=== PATIENT | female | born 1960 | race African-American/Black ===

== ENCOUNTER 2023-09-11 10:57 | Emergency (ER) | payer MEDICAID, OTHER ==
[~2023-09-11] VITALS: Ht 165.1 cm; Wt 65.3 kg
[2023-09-11] MEDS ORDERED: KETOROLAC TROMETHAMINE 15 MG/ML VIAL IM ONE (12:30)
[2023-09-11] MEDS ORDERED: ACETAMINOPHEN 325 MG TABLET PO ONE (12:30)
[2023-09-11] MEDS ORDERED: ACETAMINOPHEN 325 MG TABLET ONE (12:31)
[2023-09-11] MEDS ORDERED: KETOROLAC TROMETHAMINE 15 MG/ML VIAL ONE (12:31)
[2023-09-11] MEDS ORDERED: IBUP-1955 PO (14:56)
[2023-09-11 16:13] VITALS: BP 116/65; TEMP 98.3; O2SAT 100
== END 2023-09-11 15:40 | disposition home or self-care (01) ==
LOC: ER 10:57
DX: S93.402A Sprain of unspecified ligament of left ankle, initial encounter (principal); S93.602A Unspecified sprain of left foot, initial encounter; S63.91XA Sprain of unspecified part of right wrist and hand, initial encounter; W01.0XXA Fall on same level from slipping, tripping and stumbling without subsequent striking against object, initial encounter; Y93.89 Activity, other specified; Y92.89 Other specified places as the place of occurrence of the external cause; Y99.8 Other external cause status
CPT/HCPCS: 29125; 29515; 73110; 73130; 73610; 73630; 96372; 99284; J1885

== ENCOUNTER 2023-12-27 10:52 | Inpatient (IN) | payer OTHER ==
[~2023-12-27] VITALS: Ht 165.1 cm; Wt 73.5 kg
[~2023-12-27 10:52] MED LIST: IBUP-1955 PO; PRED20TA PO
[2023-12-27] MEDS ORDERED: ONDANSETRON HCL/PF 4 MG/2 ML VIAL ONE (11:37)
[2023-12-27] MEDS ORDERED: MORPHINE SULFATE INJ 4 MG/ML DISP.SYRIN ONE (11:38)
[2023-12-27] MEDS: ONDANSETRON HCL/PF 4 MG/2 ML VIAL IVP ONE (12:08)
[2023-12-27] MEDS: MORPHINE SULFATE INJ 2 MG/ML DISP.SYRIN IV ONE (12:10)
[2023-12-27 12:18] LABS: WHITE BLOOD COUNT (AUTO) 19.9 K/uL (4.3-11.0)
[2023-12-27 12:20] LABS: BASOPHILS # (AUTO) 0.2 K/uL (0.0-0.2); BASOPHILS % (AUTO) 1.1 % (0.0-2.0); EOSINOPHILS % (AUTO) 0.1 % (0.0-6.0); HEMATOCRIT 40 % (33-45); LYMPHOCYTES # (AUTO) 3.4 K/uL (0.8-4.8); MEAN CORPUSCULAR HEMOGLOBIN 31 PG (26.0-33.0); MEAN CORPUSCULAR HGB CONC 33 g/dl (31.0-36.0); MEAN CORPUSCULAR VOLUME 93 fL (82-100); MONOCYTES # (AUTO) 0.9 K/uL (0.1-1.30); MONOCYTES % (AUTO) 4.5 % (2.0-12.0); NEUTROPHILS # (AUTO) 15.4 K/uL (1.8-8.9); NEUTROPHILS % (AUTO) 77.3 % (43.0-81.0); PLATELET COUNT (AUTO) 450 K/uL (150-450); RED BLOOD CELL COUNT(AUTO) 4.26 MIL/uL (4.0-5.2); RED CELL DISTRIBUTION WIDTH 13.7 % (11.5-15.0)
[2023-12-27 12:20] LABS: APPEARANCE,URINE CLEAR (CLEAR); BILIRUBIN,URINE NEGATIVE (NEGATIVE); BLOOD, URINE NEGATIVE Ery/uL (NEGATIVE); COLOR,URINE YELLOW (YELLOW); KETONES,URINE NEGATIVE (NEGATIVE); LEUKOCYTE ESTERASE ,URINE NEGATIVE (NEGATIVE); NITRITE, URINE NEGATIVE (NEGATIVE); PH,URINE 6.5 (5.0-8.0); PROTEIN,URINE NEGATIVE (NEGATIVE); UGLUCOSE NEGATIVE (NEGATIVE); UROBILINOGEN,URINE 0.2 EU/dL (0.2)
[2023-12-27 12:24] LABS: ALBUMIN 3.6 g/dL (3.4-5.0); BILIRUBIN,DIRECT 0.1 mg/dL (0.0-0.2); BILIRUBIN,TOTAL 0.4 mg/dL (0.2-1.0); CALCIUM, SERUM 9.1 mg/dL (8.5-10.1); CREATININE 0.7 mg/dL (0.6-1.3); POTASSIUM 4.1 mmol/L (3.5-5.1); TOTAL PROTEIN, SERUM 7.8 g/dL (6.4-8.2)
[2023-12-27] MEDS ORDERED: IV NS 0.9% 250 ML IV ONE (12:43)
[2023-12-27] MEDS ORDERED: IOHEXOL-300 100 ML VIAL IV ONE (12:43)
[2023-12-27] MEDS: IV NS 0.9% 1,000 ML BAG IV ONE (13:10)
[2023-12-27] MEDS: PIPERACILLIN /TAZOBACTAM 3.375 G in IV D5W 50 ML IV ONE (13:40)
[2023-12-27] MEDS ORDERED: PIPERACI/TAZO 3.375GM/D5W 50ML PB IV ONE (13:43)
[2023-12-27] MEDS: HYDROMORPHONE INJ 2 MG/ML DISP.SYRIN IV ONE (15:55)
[2023-12-27 16:00] VITALS: BP 118/79; TEMP 97.5; O2SAT 98
[2023-12-27] MEDS ORDERED: ALBU6.7H9 IH (16:43)
[2023-12-27] MEDS ORDERED: MECL-159 PO (16:43)
[2023-12-27] MEDS ORDERED: FLUT16SP16 BNOSTRILS (16:43)
[2023-12-27] MEDS ORDERED: GABA-532 PO (16:43)
[2023-12-27] MEDS ORDERED: UMEC1BLS IH (16:43)
[2023-12-27] MEDS ORDERED: MULT-754 PO (16:43)
[2023-12-27] MEDS ORDERED: METO50TA16 PO (16:43)
[2023-12-27] MEDS ORDERED: DULO30CA52 PO (16:43)
[2023-12-27] MEDS ORDERED: ATOR20TA PO (16:43)
[2023-12-27] MEDS ORDERED: CHOL100045 PO (16:43)
[2023-12-27] MEDS ORDERED: ZOLPIDEM TARTRATE 5 MG TABLET PO PRN (20:30)
[2023-12-27] MEDS ORDERED: ACETAMINOPHEN 325 MG TABLET PO PRN (20:30)
[2023-12-27 21:00] VITALS: BP 118/79; TEMP 97.5; O2SAT 98
[2023-12-27] MEDS: HYDROCODONE/APAP 5/325MG TABLET PO PRN (22:31)
[2023-12-28 05:00] VITALS: BP 118/79; TEMP 97.5; O2SAT 98
[2023-12-28 07:14] LABS: BASOPHILS # (AUTO) 0.1 K/uL (0.0-0.2); BASOPHILS % (AUTO) 0.5 % (0.0-2.0); EOSINOPHILS # (AUTO) 0.2 K/uL (0.0-0.7); EOSINOPHILS % (AUTO) 1.6 % (0.0-6.0); HEMATOCRIT 35 % (33-45); HEMOGLOBIN 11.5 g/dL (11.5-14.8); LYMPHOCYTES # (AUTO) 4.2 K/uL (0.8-4.8); LYMPHOCYTES % (AUTO) 34.3 % (20.0-44.0); MEAN CORPUSCULAR HEMOGLOBIN 31 PG (26.0-33.0); MEAN CORPUSCULAR HGB CONC 33 g/dl (31.0-36.0); MEAN CORPUSCULAR VOLUME 95 fL (82-100); MONOCYTES # (AUTO) 0.9 K/uL (0.1-1.30); MONOCYTES % (AUTO) 7.4 % (2.0-12.0); NEUTROPHILS # (AUTO) 6.9 K/uL (1.8-8.9); NEUTROPHILS % (AUTO) 56.2 % (43.0-81.0); PLATELET COUNT (AUTO) 355 K/uL (150-450); RED BLOOD CELL COUNT(AUTO) 3.72 MIL/uL (4.0-5.2); RED CELL DISTRIBUTION WIDTH 13.4 % (11.5-15.0); WHITE BLOOD COUNT (AUTO) 12.3 K/uL (4.3-11.0)
[2023-12-28 07:30] LABS: ALBUMIN 2.9 g/dL (3.4-5.0); BILIRUBIN,TOTAL 0.3 mg/dL (0.2-1.0); CALCIUM, SERUM 8.5 mg/dL (8.5-10.1); CREATININE 0.7 mg/dL (0.6-1.3); POTASSIUM 3.9 mmol/L (3.5-5.1); TOTAL PROTEIN, SERUM 6.2 g/dL (6.4-8.2)
[2023-12-28] MEDS: CHOLECALCIFEROL 1,000 UNIT TABLET (VIT D3) PO SCH (08:59)
[2023-12-28] MEDS: MULTIVITAMINS,THERAGRAN 1 UDTAB TABLET PO SCH (08:59)
[2023-12-28] MEDS: predniSONE 20 MG TABLET PO SCH (08:59)
[2023-12-28] MEDS: FLUTICASONE PROPIONATE 16 GM BOTTLE NS SCH (08:59)
[2023-12-28] MEDS: ATORVASTATIN 10 MG TABLET PO SCH (08:59)
[2023-12-28] MEDS: DULOXETINE HCL 30 MG CAPSULE.DR PO SCH (08:59)
[2023-12-28] MEDS: GABAPENTIN 100 MG CAPSULE PO SCH (08:59)
[2023-12-28] MEDS: MECLIZINE HCL 25 MG TABLET PO SCH (09:00)
[2023-12-28] MEDS: METOPROLOL TARTRATE 50 MG TABLET PO SCH (09:00)
[2023-12-28] MEDS ORDERED: ONDANSETRON HCL/PF 4 MG/2 ML VIAL IV PRN (09:00)
[2023-12-28] MEDS ORDERED: BISACODYL SUPP (10 MG) 10 MG/SUPP.RECT SUPP.RECT RC PRN (09:00)
[2023-12-28] MEDS: PANTOPRAZOLE 40 MG TABLET.DR PO SCH (09:04)
[2023-12-28] MEDS: DOCUSATE SODIUM 100 MG CAPSULE PO SCH (09:04)
[2023-12-28 13:00] VITALS: BP 117/88; TEMP 98.4; O2SAT 96
[2023-12-28] MEDS: SENNOSIDES 8.6 MG TABLET PO SCH (21:05)
[2023-12-29 00:27] VITALS: BP 91/64; TEMP 98.2; O2SAT 98
[2023-12-29 05:37] VITALS: BP 146/98; TEMP 98.2; O2SAT 98
[2023-12-29 07:13] LABS: BASOPHILS # (AUTO) 0.1 K/uL (0.0-0.2); EOSINOPHILS # (AUTO) 0.1 K/uL (0.0-0.7); EOSINOPHILS % (AUTO) 0.7 % (0.0-6.0); HEMATOCRIT 35 % (33-45); HEMOGLOBIN 11.5 g/dL (11.5-14.8); LYMPHOCYTES # (AUTO) 4.8 K/uL (0.8-4.8); LYMPHOCYTES % (AUTO) 34.3 % (20.0-44.0); MEAN CORPUSCULAR HEMOGLOBIN 31 PG (26.0-33.0); MEAN CORPUSCULAR HGB CONC 33 g/dl (31.0-36.0); MEAN CORPUSCULAR VOLUME 95 fL (82-100); MONOCYTES # (AUTO) 0.9 K/uL (0.1-1.30); MONOCYTES % (AUTO) 6.6 % (2.0-12.0); NEUTROPHILS # (AUTO) 8.1 K/uL (1.8-8.9); NEUTROPHILS % (AUTO) 57.4 % (43.0-81.0); PLATELET COUNT (AUTO) 358 K/uL (150-450); RED BLOOD CELL COUNT(AUTO) 3.68 MIL/uL (4.0-5.2); RED CELL DISTRIBUTION WIDTH 13.6 % (11.5-15.0); WHITE BLOOD COUNT (AUTO) 14.1 K/uL (4.3-11.0)
[2023-12-29 07:24] LABS: INR 1.09 (0.91-1.10); PROTHROMBIN TIME 11.5 SECS (9.2-11.1)
[2023-12-29 07:57] LABS: CALCIUM, SERUM 8.7 mg/dL (8.5-10.1); CREATININE 0.7 mg/dL (0.6-1.3); POTASSIUM 3.8 mmol/L (3.5-5.1)
[2023-12-29] MEDS: Potassium Chloride 10 MEQ in IV D5/ 0.9% NACL 1,000 ML IV SCH (09:05)
[2023-12-29] MEDS: PEG 3350/NA SULF,BICARB,CL/KCL 4,000 ML BOTTLE PO ONE ×2 (10:19→18:48)
[2023-12-29] MEDS: PIPERACILLIN /TAZOBACTAM 3.375 G in IV D5W 50 ML IV SCH (12:31)
[2023-12-29 13:00] VITALS: BP 136/89; TEMP 98.2; O2SAT 98
[2023-12-29] MEDS: HYDROCODONE/APAP 10/325MG TABLET PO PRN (18:09)
[2023-12-29 19:43] VITALS: O2SAT 97
[2023-12-29] MEDS: ALBUTEROL FS 2.5 MG/3 ML VIAL.NEB NEB SCH (19:43)
[2023-12-29 19:58] VITALS: O2SAT 99
[2023-12-29 21:00] VITALS: BP 142/90; TEMP 98; O2SAT 98
[2023-12-29] MEDS: NA PHOS,M-B/NA PHOS,DI-BA 1 EA ENEMA RC ONE (21:33)
[2023-12-30] VITALS (7 sets, daily range): BP systolic 111–130; BP diastolic 57–80; TEMP 98–98.6; O2SAT 98–100
[2023-12-30] MEDS: NA PHOS,M-B/NA PHOS,DI-BA 1 EA ENEMA RC ONE (05:40)
[2023-12-30 07:02] LABS: BASOPHILS % (AUTO) 0.4 % (0.0-2.0); EOSINOPHILS # (AUTO) 0.1 K/uL (0.0-0.7); EOSINOPHILS % (AUTO) 0.8 % (0.0-6.0); HEMATOCRIT 28 % (33-45); HEMOGLOBIN 8.6 g/dL (11.5-14.8); LYMPHOCYTES # (AUTO) 3.5 K/uL (0.8-4.8); LYMPHOCYTES % (AUTO) 34.9 % (20.0-44.0); MEAN CORPUSCULAR HEMOGLOBIN 32 PG (26.0-33.0); MEAN CORPUSCULAR HGB CONC 30 g/dl (31.0-36.0); MEAN CORPUSCULAR VOLUME 105 fL (82-100); MONOCYTES # (AUTO) 0.9 K/uL (0.1-1.30); MONOCYTES % (AUTO) 8.6 % (2.0-12.0); NEUTROPHILS # (AUTO) 5.6 K/uL (1.8-8.9); NEUTROPHILS % (AUTO) 55.3 % (43.0-81.0); PLATELET COUNT (AUTO) 240 K/uL (150-450); RED BLOOD CELL COUNT(AUTO) 2.72 MIL/uL (4.0-5.2); RED CELL DISTRIBUTION WIDTH 14.9 % (11.5-15.0); WHITE BLOOD COUNT (AUTO) 10.1 K/uL (4.3-11.0)
[2023-12-30 11:20] LABS: CALCIUM, SERUM 8.3 mg/dL (8.5-10.1); CREATININE 0.8 mg/dL (0.6-1.3); POTASSIUM 3.3 mmol/L (3.5-5.1)
[2023-12-30 11:45] LABS: THYROID STIMULATING HORMONE 2.44 uIU/mL (0.358-3.74)
[2023-12-31] VITALS (7 sets, daily range): BP systolic 115–128; BP diastolic 78–80; TEMP 98–98.6; O2SAT 98–100
[2023-12-31 07:07] LABS: BASOPHILS # (AUTO) 0.1 K/uL (0.0-0.2); BASOPHILS % (AUTO) 0.7 % (0.0-2.0); EOSINOPHILS # (AUTO) 0.3 K/uL (0.0-0.7); EOSINOPHILS % (AUTO) 3.1 % (0.0-6.0); HEMATOCRIT 33 % (33-45); HEMOGLOBIN 11.1 g/dL (11.5-14.8); LYMPHOCYTES # (AUTO) 2.4 K/uL (0.8-4.8); LYMPHOCYTES % (AUTO) 27.4 % (20.0-44.0); MEAN CORPUSCULAR HEMOGLOBIN 32 PG (26.0-33.0); MEAN CORPUSCULAR HGB CONC 33 g/dl (31.0-36.0); MEAN CORPUSCULAR VOLUME 95 fL (82-100); MONOCYTES # (AUTO) 0.8 K/uL (0.1-1.30); MONOCYTES % (AUTO) 8.9 % (2.0-12.0); NEUTROPHILS # (AUTO) 5.3 K/uL (1.8-8.9); NEUTROPHILS % (AUTO) 59.9 % (43.0-81.0); PLATELET COUNT (AUTO) 308 K/uL (150-450); RED BLOOD CELL COUNT(AUTO) 3.49 MIL/uL (4.0-5.2); RED CELL DISTRIBUTION WIDTH 13.2 % (11.5-15.0); WHITE BLOOD COUNT (AUTO) 8.8 K/uL (4.3-11.0)
[2023-12-31] MEDS ORDERED: IOHEXOL-350 100 ML VIAL IV ONE (08:00)
[2023-12-31] MEDS ORDERED: IV NS 0.9% 250 ML IV ONE (08:01)
[2023-12-31 08:16] LABS: CALCIUM, SERUM 8.2 mg/dL (8.5-10.1); CREATININE 0.9 mg/dL (0.6-1.3); POTASSIUM 3.5 mmol/L (3.5-5.1)
[2023-12-31] MEDS ORDERED: METR500T PO (09:24)
[2023-12-31] MEDS ORDERED: OXYC-128 PO (09:24)
[2023-12-31] MEDS ORDERED: LEVO500T90 PO (09:24)
[2023-12-31] MEDS: IPRATROPIUM NEB FS 0.5 MG/2.5 ML AMPUL.NEB NEB SCH (14:14)
== END 2023-12-31 17:15 | disposition home or self-care (01) | DRG 392 ==
LOC: ER 10:57 → MEDSG1 15:41
PROVIDERS: ADMIT Internal Medicine; ATTEND Internal Medicine
PROC: 0DJD8ZZ Inspection of Lower Intestinal Tract, Via Natural or Artificial Opening Endoscopic (ICD-10-PCS; principal; 2023-12-30)
PROC: 0DB98ZX Excision of Duodenum, Via Natural or Artificial Opening Endoscopic, Diagnostic (ICD-10-PCS; 2023-12-30)
PROC: 0DB68ZX Excision of Stomach, Via Natural or Artificial Opening Endoscopic, Diagnostic (ICD-10-PCS; 2023-12-30)
DX: K57.32 Diverticulitis of large intestine without perforation or abscess without bleeding (principal); Q45.3 Other congenital malformations of pancreas and pancreatic duct; J44.9 Chronic obstructive pulmonary disease, unspecified; F32.9 Major depressive disorder, single episode, unspecified; E78.5 Hyperlipidemia, unspecified; D72.829 Elevated white blood cell count, unspecified; K64.8 Other hemorrhoids; I10 Essential (primary) hypertension; D64.9 Anemia, unspecified; K29.70 Gastritis, unspecified, without bleeding; Z98.1 Arthrodesis status; R42 Dizziness and giddiness; I49.9 Cardiac arrhythmia, unspecified
CPT/HCPCS: 36415; 71045-TC; 74181-TC; 76705-TC; 76856-TC; 78226; 80048-TC; 80053-TC; 80076-TC; 83540-TC; 83690-TC; 84443-TC; 85025-TC; 85610-TC; 94799-TC; A4223; A9537; G0378; J2270; J2405; J2543; J2704; J3480; J3490; J7030; J7042; J7050; J7060; J8597; Q9967

== ENCOUNTER 2024-01-08 11:17 | Emergency (ER) | payer OTHER ==
[~2024-01-08] VITALS: Ht 165.1 cm; Wt 70.3 kg
[~2024-01-08 11:17] MED LIST changes: +ALBU6.7H9 IH; +ATOR20TA PO; +CHOL100045 PO; +DULO30CA52 PO; +FLUT16SP16 BNOSTRILS; +GABA-532 PO; -IBUP-1955 PO; +LEVO500T90 PO; +MECL-159 PO; +METO50TA16 PO; +METR500T PO; +MULT-754 PO; +OXYC-128 PO; +UMEC1BLS IH
[2024-01-08] MEDS: IBUPROFEN 600 MG TABLET PO ONE (13:00)
[2024-01-08] MEDS ORDERED: IBUPROFEN 600 MG TABLET ONE (13:00)
[2024-01-08] MEDS: HYDROCODONE/APAP 5/325MG TABLET PO ONE ×2 (13:00→19:41)
[2024-01-08] MEDS ORDERED: HYDROCODONE/APAP 5/325MG TABLET ONE ×2 (13:00→19:37)
[2024-01-08] MEDS ORDERED: HYDR-4303 PO (13:10)
[2024-01-08] MEDS ORDERED: IBUP-1955 PO ×2 (13:10→14:37)
[2024-01-08] MEDS ORDERED: HYDR-3980 PO (14:37)
[2024-01-08] MEDS ORDERED: METR-147 PO (14:37)
[2024-01-08 15:00] LABS: BASOPHILS % (AUTO) 0.1 % (0.0-2.0); HEMATOCRIT 37 % (33-45); HEMOGLOBIN 11.9 g/dL (11.5-14.8); LYMPHOCYTES # (AUTO) 1.3 K/uL (0.8-4.8); LYMPHOCYTES % (AUTO) 8.4 % (20.0-44.0); MEAN CORPUSCULAR HEMOGLOBIN 30 PG (26.0-33.0); MEAN CORPUSCULAR HGB CONC 32 g/dl (31.0-36.0); MEAN CORPUSCULAR VOLUME 94 fL (82-100); MONOCYTES # (AUTO) 0.4 K/uL (0.1-1.30); MONOCYTES % (AUTO) 2.6 % (2.0-12.0); NEUTROPHILS # (AUTO) 14.2 K/uL (1.8-8.9); NEUTROPHILS % (AUTO) 88.9 % (43.0-81.0); PLATELET COUNT (AUTO) 317 K/uL (150-450); RED BLOOD CELL COUNT(AUTO) 3.96 MIL/uL (4.0-5.2); RED CELL DISTRIBUTION WIDTH 13.7 % (11.5-15.0)
[2024-01-08 15:25] LABS: INR 1.05 (0.91-1.10); PARTIAL THROMBOPLASTIN TIME 20.5 SEC (24.3-34.3); PROTHROMBIN TIME 10.8 SECS (9.2-11.1)
[2024-01-08 15:26] LABS: CALCIUM, SERUM 8.6 mg/dL (8.5-10.1); CREATININE 0.8 mg/dL (0.6-1.3); POTASSIUM 4.5 mmol/L (3.5-5.1)
[2024-01-09 01:10] VITALS: BP 133/84; TEMP 98.6; O2SAT 98
== END 2024-01-09 01:11 | disposition home or self-care (01) ==
LOC: ER 11:24
DX: S86.002A Unspecified injury of left Achilles tendon, initial encounter (principal); I10 Essential (primary) hypertension; E78.5 Hyperlipidemia, unspecified; Z79.899 Other long term (current) drug therapy; Z20.822 Contact with and (suspected) exposure to COVID-19; X58.XXXA Exposure to other specified factors, initial encounter; Y93.89 Activity, other specified; Y92.89 Other specified places as the place of occurrence of the external cause; Y99.8 Other external cause status
CPT/HCPCS: 36415; 71045-TC; 73610-TC; 80048-TC; 85025-TC; 85730-TC

== ENCOUNTER → 2024-03-14 | Emergency (ER) | payer OTHER ==
[~2024-03-14] VITALS: Ht 165.1 cm; Wt 74.4 kg
[~2024-03-14] MED LIST changes: +CEPH500C2 PO; +CEPHALEXIN MONOHYDRATE 500 MG CAPSULE PO ONE; +HYDR-3980 PO; +IBUP-1955 PO; -LEVO500T90 PO; +METR-147 PO; -METR500T PO; -OXYC-128 PO; +SILVER SULFADIAZINE CREAM 25 GM TUBE ONE
[2024-03-14] MEDS: SILVER SULFADIAZINE CREAM 25 GM TUBE TP ONE (19:13)
[2024-03-14] MEDS: CEPHALEXIN MONOHYDRATE 500 MG CAPSULE PO ONE (19:13)
[2024-03-14 19:18] VITALS: BP 120/72; TEMP 97.9; O2SAT 100
== END | disposition home or self-care (01) ==
LOC: ER 17:57
DX: Z48.00 Encounter for change or removal of nonsurgical wound dressing (principal); R50.9 Fever, unspecified; I10 Essential (primary) hypertension; E78.5 Hyperlipidemia, unspecified; Z87.19 Personal history of other diseases of the digestive system; Z98.890 Other specified postprocedural states
CPT/HCPCS: 99283; A6403